=== PATIENT | female | born 1940 | race Caucasian/White ===

== ENCOUNTER 2023-03-09 15:18 | Day surgery (SDC) | payer MEDICARE ==
[2023-03-09] MEDS ORDERED: Depo-Medrol 40 MG/ML IM ONE (15:19)
[2023-03-09] MEDS ORDERED: LIDOCAINE HCL 1% 50 MG/5 ML VL PF IJ ONE (15:19)
[2023-03-09] MEDS ORDERED: BUPIVACAINE 0.5% VIAL IJ ONE (15:19)
--- NOTE | 2023-03-09 17:29 | XRAY ---
Indication: Right knee injection. Intraoperative fluoroscopy provided for 13 seconds. Single digital spot images submitted for interpretation demonstrates needle tip projecting over the right femur intercondylar notch. Small amount of contrast injected for needle tip placement. Correlate with intraoperative findings/report.
--- NOTE | 2023-03-09 17:29 | XRAY ---
Indication: Left knee injection. Intraoperative fluoroscopy provided for 8 seconds. Single digital spot images submitted for interpretation demonstrates needle tip projecting over the left femur intercondylar notch. Small amount of contrast injected for needle tip placement. Correlate with intraoperative findings/report.
--- NOTE | 2023-03-10 08:48 | XRAY ---
8 seconds of fluoroscopy was used in surgery for a left intra-articular knee injection.
--- NOTE | 2023-03-10 08:48 | XRAY ---
13 seconds of fluoroscopy was used in surgery for a right intra-articular knee injection.
== END 2023-03-09 16:35 | disposition home or self-care (01) ==
LOC: SDC-PAIN 15:18
PROVIDERS: ATTEND Psychiatry & Neurology Pain Medicine
DX: M17.0 Bilateral primary osteoarthritis of knee (principal); Z79.899 Other long term (current) drug therapy
CPT/HCPCS: 20610; 73560; 77002; J1030; J2001; Q9966